=== PATIENT | female | born 2000 | race African-American/Black ===

== ENCOUNTER 2018-05-11 16:33 | Emergency (ER) | payer OTHER | END 2018-05-11 18:49 | disposition home or self-care (01) | LOC: M ED 16:33 | DX: S30.854A Superficial foreign body of vagina and vulva, initial encounter (principal); X58.XXXA Exposure to other specified factors, initial encounter; Y92.89 Other specified places as the place of occurrence of the external cause | CPT/HCPCS: 99283 ==

== ENCOUNTER 2018-06-17 04:52 | Emergency (ER) | payer OTHER ==
[2018-06-17 05:27] LABS: BASO # 0.1 10^3/uL (0.0-0.2); BASO % 0.5 % (0.0-1.0); EOS # 0.1 10^3/uL (0.0-0.50); HEMATOCRIT 40.3 % (36.0-47.0); HEMOGLOBIN 12.5 g/dl (12.0-15.5); IMMATURE GRANULOCYTE % 0.2 % (0-3.0); LYMPH # 3.9 10^3/uL (1.5-6.5); LYMPH % 42.7 % (24.0-44.0); MEAN CORPUSCULAR HEMOGLOBIN 25.1 pg (27.0-33.0); MEAN CORPUSCULAR VOLUME 80.9 fl (80.0-96.0); MONO # 0.6 10^3/uL (0.0-0.8); MONO % 6.7 % (0.0-5.0); NEUTROPHILS # 4.5 10^3/uL (1.8-7.7); NEUTROPHILS % 48.9 % (36.0-66.0); PLATELET COUNT, AUTOMATED 285 10^3/uL (150-450); RED BLOOD COUNT 4.98 10^6/uL (4.00-5.40); RED CELL DISTRIBUTION WIDTH 16.2 % (11.5-14.5); WHITE BLOOD COUNT 9.2 10^3/uL (4.0-10.0)
[2018-06-17 05:38] LABS: CONTROL LINE HCG INT CTR LINE PRESENT; HCG, SERUM QUALITATIVE NEGATIVE (NEGATIVE)
[2018-06-17] MEDS: IPRATROPIUM 0.5MG/ALBUTEROL 2.5MG INH SOL UD 3ML (DUONEB)(J7620) NEB (05:43)
[2018-06-17 05:51] LABS: ANION GAP 6 MEQ/L (8-16); BLOOD UREA NITROGEN 11 MG/DL (7-18); CALCIUM LEVEL 8.9 MG/DL (8.5-10.1); CARBON DIOXIDE LEVEL 28 MEQ/L (21-32); CHLORIDE LEVEL 106 MEQ/L (98-107); CK-MB VALUE MASS < 1.0 NG/ML (<3.6); CPK CREATINE PHOSPHOKINASE 151 U/L (26-192); GLUCOSE, FASTING 90 MG/DL (70-100); MB/CK RELATIVE INDEX 0.66 (< OR =4); POTASSIUM SERUM 4.1 MEQ/L (3.5-5.1); SODIUM LEVEL 140 MEQ/L (136-145); TROPONIN I < 0.02 NG/ML (< 0.10)
[2018-06-17 06:17] LABS: INFLUENZA A AMPLIFICATION NEGATIVE (NEGATIVE); INFLUENZA B AMPLIFICATION NEGATIVE (NEGATIVE)
[2018-06-17 07:42] LABS: D-DIMER QUANT < 270.0 ng/ml (<500)
== END 2018-06-17 08:41 | disposition home or self-care (01) ==
LOC: M ED 04:52
DX: J98.01 Acute bronchospasm (principal); J45.909 Unspecified asthma, uncomplicated; K21.9 Gastro-esophageal reflux disease without esophagitis
CPT/HCPCS: 71046

== ENCOUNTER 2018-08-01 20:56 | Emergency (ER) | payer OTHER ==
[2018-08-01 21:35] LABS: BASO # 0.1 10^3/uL (0.0-0.2); BASO % 0.4 % (0.0-1.0); EOS # 0.1 10^3/uL (0.0-0.50); EOS % 0.7 % (0.0-3.0); HEMOGLOBIN 11.7 g/dl (12.0-15.5); IMMATURE GRANULOCYTE % 0.3 % (0-3.0); LYMPH # 3.7 10^3/uL (1.5-6.5); LYMPH % 29.6 % (24.0-44.0); MEAN CORPUSCULAR HEMOGLOBIN 26.6 pg (27.0-33.0); MEAN CORPUSCULAR HGB CONC 31.6 g/dl (32.0-36.5); MEAN CORPUSCULAR VOLUME 84.1 fl (80.0-96.0); MONO # 1.2 10^3/uL (0.0-0.8); MONO % 9.7 % (0.0-5.0); NEUTROPHILS # 7.3 10^3/uL (1.8-7.7); NEUTROPHILS % 59.3 % (36.0-66.0); PLATELET COUNT, AUTOMATED 287 10^3/uL (150-450); RED CELL DISTRIBUTION WIDTH 14.4 % (11.5-14.5); WHITE BLOOD COUNT 12.3 10^3/uL (4.0-10.0)
[2018-08-01 21:43] LABS: KETONE, URINE AUTO RFX NEGATIVE (NEGATIVE); MUCUS, URINE RFX SMALL (NEGATIVE); NITRITE, URINE AUTO RFX NEGATIVE (NEGATIVE); RBC, URINE AUTO RFX 1 /HPF (0-3); SPECIFIC GRAVITY UR AUTO RFX 1.008 (1.002-1.035); SQUAM EPITHELIAL CELL UR AURFX 1 /HPF (0-6); WBC, URINE AUTO RFX 1 /HPF (0-3)
[2018-08-01 21:55] LABS: LEUKOCYTE ESTERASE UR AUTO RFX TRACE (NEGATIVE)
[2018-08-01 23:12] LABS: HCG, SERUM QUANTITATIVE 12554 MIU/ML
== END 2018-08-01 23:34 | disposition home or self-care (01) ==
LOC: M ED 20:56
DX: O20.8 Other hemorrhage in early pregnancy (principal); Z3A.01 Less than 8 weeks gestation of pregnancy; Z79.899 Other long term (current) drug therapy
CPT/HCPCS: 76801

== ENCOUNTER → 2018-08-04 | Outpatient (CLI) | payer OTHER ==
[2018-08-04 11:19] LABS: HCG, SERUM QUANTITATIVE 23462 MIU/ML
== END ==
LOC: M LAB 10:23
DX: O99.89 Other specified diseases and conditions complicating pregnancy, childbirth and the puerperium (principal); N93.9 Abnormal uterine and vaginal bleeding, unspecified; Z3A.00 Weeks of gestation of pregnancy not specified
CPT/HCPCS: 84702

== ENCOUNTER 2018-11-26 13:24 | Outpatient (CLI) | payer OTHER ==
[~2018-11-26] VITALS: Ht 165.1 cm; Wt 67.7 kg
[~2018-11-26 13:24] MED LIST: PRENATAL VITAMIN PO
[2018-11-26 13:43] VITALS: BP 124/74
[2018-11-26 14:58] VITALS: BP 119/75
[2018-11-26 16:10] VITALS: BP 118/73
--- NOTE | 2018-11-26 17:29 | IPNPDOC ---
Text Note Date of Service The patient was seen on 11/26/18. NOTE Triage Note Pt is a 18yo with SIUP at approx 22wk who presents to L&D after one episode of emesis this morning after breakfast followed by left sided abdominal pain. No fevers/chills. No diarrhea. No other symptoms. Feels movement. No vaginal bleeding, loss of fluid, ctx/cramping. Vitals wnl, afebrile Doptones positive, no ctx on toco General: WDWN, NAD, resting comfortably in bed Abdomen: soft, gravid, tender with deep palpation along left round ligament but no rebound/guarding Extremities: no edema Assessment: Pt is a 18yo with SIUP at approx 22wk with likely left sided round ligament discomfort after 1 episode of emesis. Tolerated Pepsi soda in triage without further emesis. Reassuring assessment. Vitals wnl, benign exam. Plan: -safe for discharge home -keep routine OB appts -encouraged hydration and BRAT diet -safe for discharge Dr. Virgen Smith MD VS,Johanny, I+O VSJohanny, I+O Vital Signs Date Time Temp Pulse Resp B/P (MAP) Pulse Ox O2 Delivery O2 Flow Rate FiO2 11/26/18 16:10 77 18 118/73 (88) 11/26/18 13:43 98.6 Virgen Smith MD Nov 26, 2018 17:29
== END 2018-11-26 16:10 | disposition home or self-care (01) ==
LOC: M LDO 13:24
PROVIDERS: ATTEND Obstetrics & Gynecology
DX: O21.2 Late vomiting of pregnancy (principal); O26.893 Other specified pregnancy related conditions, third trimester; R10.30 Lower abdominal pain, unspecified; Z3A.22 22 weeks gestation of pregnancy
CPT/HCPCS: 59025; G0378; G0463